=== PATIENT | female | born 1950 | race Caucasian/White ===

== ENCOUNTER 2021-04-17 06:59 | Observation (INO) | payer MEDICARE ==
[2021-04-15 15:14] LABS: BASOPHILS % 0.6 % (0.0-1.0); EOSINOPHILS # (AUTO) 0.2 (0.0-0.4); EOSINOPHILS % 3.5 % (0.0-6.0); HEMATOCRIT 38.7 % (34.2-44.1); HEMOGLOBIN 12.5 g/dL (12.0-16.0); LYMPHOCYTES # (AUTO) 2.7 (1.0-3.2); LYMPHOCYTES % 38.8 % (18.0-39.1); MEAN CORPUSCULAR HGB CONC 32.3 g/dL (31-35); MONOCYTES # (AUTO) 0.6 (0.2-0.8); MONOCYTES % 9.1 % (4.4-11.3); NEUTROPHILS # (AUTO) 3.3 (2.1-6.9); NEUTROPHILS % 47.6 % (38.7-80.0); PLATELET COUNT 247 x10e3/uL (140-360); RED BLOOD COUNT 3.91 x10e6/uL (3.6-5.1); RED CELL DISTRIBUTION WIDTH 12.3 % (11.7-14.4)
[2021-04-15 15:32] LABS: BLOOD UREA NITROGEN 22 mg/dL (7-26); BUN/CREATININE RATIO 26 (6-25); CALCIUM 9.7 mg/dL (8.4-10.2); CARBON DIOXIDE 28 mmol/L (22-29); CHLORIDE 103 mmol/L (98-107); CREATININE, SERUM 0.84 mg/dL (0.57-1.11); EST GLOMERULAR FILTRATION RATE > 60 ML/MIN (60-); GLUCOSE 100 mg/dL (74-118); INR 1.15; PROTHROMBIN TIME 15.4 seconds (11.9-14.5); SODIUM 140 mmol/L (136-145)
[2021-04-15 15:33] LABS: PARTIAL THROMBOPLASTIN TIME 37.3 seconds (23.8-35.5)
[~2021-04-17] VITALS: Ht 165.1 cm; Wt 113.9 kg
[2021-04-17] VITALS (7 sets, daily range): BP systolic 115–142; BP diastolic 47–62
[~2021-04-17 06:59] MED LIST: ABILIFY10 MG PO; AMIODARONE HCL200 MG PO; BIOTIN2500 MCG PO; BUPIVACAINE 0.5%/EPI 30 ML SDV INJ ONE; COQ1050 MG PO; DESVENLAFAXINE50 M1 PO; ELIQUIS5 MG PO; FLAXSEED OIL1000 MG PO; FUROSEMIDE40 MG PO; LEVOTHYROXINE125 MCG PO; LOSARTAN-HCTZ1 EACH PO; METOPROLOL PO; THROMBIN FOR SOLN 5,000 UNIT VIAL ONE; TRAZODONE HCL100 MG PO; VANCOMYCIN HCL 1 GM VIAL ONE; VITAMIN D3250 MC1 PO; ZINC GUMMIES PO
[2021-04-17] MEDS ORDERED: ACETAMINOPHEN 1000 MG/100 ML 100 ML IV ONE (07:11)
[2021-04-17] MEDS ORDERED: IBUPROFEN 800MG/ 200ML 200 ML IV ONE (07:11)
[2021-04-17] MEDS ORDERED: LIDOCAINE HCL (LTA) 4 ML SOLN ONE (07:11)
[2021-04-17] MEDS ORDERED: CEFAZOLIN SOD 1 GM/NS 50ML 100 ML IV ONE (07:48)
[2021-04-17 08:32] LABS: INR 0.95; PROTHROMBIN TIME 13.3 seconds (11.9-14.5)
[2021-04-17 08:33] LABS: PARTIAL THROMBOPLASTIN TIME 32.5 seconds (23.8-35.5)
[2021-04-17] MEDS ORDERED: PROMETHAZINE HCL (IM) 25 MG/ML VIAL IM PRN (10:15)
[2021-04-17] MEDS ORDERED: CARISOPRODOL 350 MG TAB PO PRN (10:15)
[2021-04-17] MEDS ORDERED: CEPACOL SORE THROAT LOZENGES PO PRN (10:15)
[2021-04-17] MEDS ORDERED: MORPHINE SULFATE 5 MG/ML VIAL IM PRN (10:15)
[2021-04-17] MEDS ORDERED: OXYCODONE/ACETAMINOPHEN 5-325 1 EACH TABLET PO PRN (10:15)
[2021-04-17] MEDS ORDERED: ACETAMINOPHEN 325 MG TAB PO PRN (10:15)
[2021-04-17] MEDS ORDERED: MAGNESIUM/ALUMINUM/SIMETHICONE 30 ML UDC PO PRN (10:15)
[2021-04-17] MEDS: LACTATED RINGER'S 1,000 ML IV SCH ×2 (10:15→18:23)
[2021-04-17] MEDS ORDERED: HYDROCODON-ACE1 EA12 PO (10:16)
[2021-04-17] MEDS ORDERED: FENTANYL CITRATE/PF 100MCG/2 ML INJ ONE ×2 (12:58→16:54)
[2021-04-17] MEDS ORDERED: SODIUM CHLORIDE 0.9% 250ML 250 ML ONE (15:03)
[2021-04-17] MEDS ORDERED: LIDOCAINE HCL 2% JELLY 5 ML TUBE ONE (16:29)
[2021-04-17] MEDS ORDERED: PROPOFOL IV EMULSION 10 MG/ML 20 ML VIAL ONE (16:29)
[2021-04-17] MEDS ORDERED: POVIDONE IODINE 0.05% 0.05 % ML PO ONE (16:29)
[2021-04-17] MEDS ORDERED: LIDOCAINE HCL 2% LOCAL INJ 5 ML SDV VIAL INJ ONE (16:29)
[2021-04-17] MEDS ORDERED: NEOSTIGMINE 1 MG/ML 10ML VIAL ONE (16:29)
[2021-04-17] MEDS ORDERED: DEXAMETHASONE SOD PHOS INJ 4 MG/ML VIAL ONE (16:29)
[2021-04-17] MEDS ORDERED: GLYCOPYRROLATE INJ 0.2 MG/ML VIAL ONE (16:29)
[2021-04-17] MEDS ORDERED: ONDANSETRON HCL INJ 2MG/ML 2ML 2 MG/ML VIAL ONE (16:29)
[2021-04-17] MEDS ORDERED: SEVOFLURANE INHAL SOLN 250 ML PEN BTL ONE (16:29)
[2021-04-17] MEDS ORDERED: ROCURONIUM BROMIDE 10 MG/ML 5ML VIAL IV ONE (16:29)
[2021-04-17] MEDS: FLAXSEED PO SCH (17:00)
[2021-04-17] MEDS: (Biotin 5,000 MCG) PO SCH (17:00)
[2021-04-17] MEDS: CEFAZOLIN SOD 1 GM/NS 50ML 50 ML IV SCH (17:38)
[2021-04-17] MEDS ORDERED: ARIPIPRAZOLE 20 MG TAB PO SCH (21:00)
[2021-04-17] MEDS ORDERED: ARIPIPRAZOLE 5 MG TABLET PO SCH (21:00)
[2021-04-17] MEDS ORDERED: TRAZODONE HCL 50 MG TAB PO SCH (21:00)
[2021-04-17] MEDS ORDERED: ZOLPIDEM TARTRATE 5 MG TAB PO PRN (21:00)
[2021-04-17] MEDS ORDERED: CHOLECALCIFEROL PO SCH (21:00)
[2021-04-17] MEDS ORDERED: DESVENLAFAXINE SUCCINATE 50 MG TAB.SR.24H PO SCH (21:00)
[2021-04-17] MEDS ORDERED: DESVENLAFAXINE 50 MG PO SCH (21:00)
[2021-04-17] MEDS ORDERED: LOSARTAN POTASSIUM 100 MG TAB PO SCH (21:00)
[2021-04-17] MEDS: ONDANSETRON HCL INJ 2MG/ML 2ML 2 MG/ML VIAL IV PRN (21:05)
[2021-04-17] MEDS: HYDROMORPHONE 2MG/ML 2 MG/ML ML IV PRN (21:06)
[2021-04-18] VITALS: BP 113/54
[2021-04-18] MEDS: CEFAZOLIN SOD 1 GM/NS 50ML 50 ML IV SCH ×2 (01:02→09:46)
[2021-04-18] MEDS: LACTATED RINGER'S 1,000 ML IV SCH (02:55)
[2021-04-18 04:42] VITALS: BP 123/52
[2021-04-18] MEDS: ONDANSETRON HCL INJ 2MG/ML 2ML 2 MG/ML VIAL IV PRN (05:52)
[2021-04-18] MEDS: HYDROMORPHONE 2MG/ML 2 MG/ML ML IV PRN (05:52)
[2021-04-18] MEDS ORDERED: LEVOTHYROXINE SODIUM 125 MCG TAB PO SCH (06:00)
[2021-04-18 07:53] VITALS: BP 118/54
[2021-04-18 08:22] VITALS: BP 118/54
[2021-04-18] MEDS ORDERED: METOPROLOL 100 MG PO SCH (09:00)
[2021-04-18] MEDS ORDERED: FUROSEMIDE 40 MG TAB PO SCH (09:00)
[2021-04-18] MEDS ORDERED: AMIODARONE HCL 200 MG TAB PO SCH (09:00)
[2021-04-18] MEDS ORDERED: METOPROLOL SUCCINATE 50 MG TAB XL PO SCH (09:00)
[2021-04-18] MEDS: (Biotin 5,000 MCG) PO SCH (09:00)
[2021-04-18] MEDS ORDERED: ZINC GUMMIES PO SCH (09:00)
[2021-04-18] MEDS: FLAXSEED PO SCH (09:00)
[2021-04-18] MEDS ORDERED: ONDANSETRON HCL 4 MG ORAL DISINTEGRATING TAB PO PRN (11:15)
[2021-04-18 11:59] VITALS: BP 138/51
== END 2021-04-18 12:40 | disposition home or self-care (01) ==
LOC: OR 06:59 → PACU V 11:00 → MED/SURG 13:24
PROVIDERS: ADMIT Neurological Surgery; ATTEND Neurological Surgery
DX: M50.122 Cervical disc disorder at C5-C6 level with radiculopathy (principal); Z20.822 Contact with and (suspected) exposure to COVID-19; Z01.818 Encounter for other preprocedural examination; I48.91 Unspecified atrial fibrillation; Z79.01 Long term (current) use of anticoagulants; E78.5 Hyperlipidemia, unspecified; E03.9 Hypothyroidism, unspecified; E66.01 Morbid (severe) obesity due to excess calories; Z68.41 Body mass index [BMI] 40.0-44.9, adult
CPT/HCPCS: 20931; 22551; 22830; 22845; 22855; 36415 ×2; 71046; 72040; 77003; 80048; 85025; 85610 ×2; 85730 ×2; 86850; 86900; 88300; 88304; 93005; G0378 ×2; J0131; J0690 ×2; J1100; J1170 ×2; J2001 ×2; J2405; J2704; J2710; J3010; J3370; J7050; U0002; C1713